=== PATIENT | female | born 1965 | race African-American/Black ===

== ENCOUNTER 2016-11-23 09:14 | Day surgery (SDC) | payer OTHER ==
[~2016-11-23] VITALS: Ht 170.2 cm; Wt 140.6 kg
[~2016-11-23 09:14] MED LIST: ASPI325T11 PO; ATOR40TA PO; CARV3.122; CEFAZOLIN 2GM PREMIX 50 ML IV ONE; CLOP75TA PO; CYCL10TA2 PO; DAPA5TAB PO; EZET10TA3 PO; FENTANYL PF 100 MCG/2 ML VIAL. IV PRN; FURO-68; HYDR-2666; HYDR-2672 PO; HYDROMORPHONE 2 MG/ML VIAL. IV PRN; INSU100C4; INSU100C4 SQ; INSU100V13 SQ; ISOS30TA4 PO; ISOSULFAN BLUE 50 MG/5 ML VIAL. SQ ONE; IV RINGERS,LACTATED 1000ML 1,000 ML IV SCH; LIDOCAINE 1% 1 ML SYRINGE. ID PRN; LISI-334; LORA4VIA4; LOSA50TA6 PO; METF-93; METF10002 PO; METO25TA4 PO; MORPHINE SULFATE 2 MG/ML DISP.SYRIN. IV PRN; NITR0.4T SL; OMEP40CA5; ONDANSETRON PF 4 MG/2 ML VIAL. IV PRN; PANT40TA3 PO; POTA20TA4 PO; PROCHLORPERAZINE 10 MG/2 ML VIAL. IV PRN; SITA100T; [UNRECOGNIZED DRUG - CODE]
[2016-11-23] MEDS ORDERED: FENTANYL PF 100 MCG/2 ML VIAL. ONE (10:33)
[2016-11-23] MEDS ORDERED: PROPOFOL 20 ML IV ONE (10:34)
[2016-11-23] MEDS ORDERED: LIDOCAINE 2% 100 MG/5 ML DISP.SYRIN. ONE (10:34)
[2016-11-23] MEDS ORDERED: SEVOFLURANE 61 TO 120 MINUTES. IH ONE (10:34)
[2016-11-23 10:37] LABS: NEG OBC UR NEG; POS OBC UR POS
[2016-11-23] MEDS ORDERED: ONDANSETRON PF 4 MG/2 ML VIAL. ONE (10:40)
[2016-11-23] MEDS ORDERED: DEXAMETHASONE SOD PHOS 20 MG/5 ML VIAL. ONE (10:40)
[2016-11-23] MEDS ORDERED: BUPIVACAINE-EPI 0.5%-1:200000 50 ML VIAL. ONE (11:09)
[2016-11-23] MEDS ORDERED: OXYCODONE/APAP 5/325 TABLET. PO ONE (11:30)
[2016-11-23] MEDS: FENTANYL PF 100 MCG/2 ML VIAL. IV PRN ×4 (11:40→12:30)
--- NOTE | 2016-11-23 12:03 | PDOC4 ---
Operative Note Operative Note Operative Note: Preoperative Diagnosis: Right axillary lymphadenopathy Postoperative Diagnosis: Same Procedure: Excision of right axillary lymph node Surgeon: [employer] Associate: Avani CRISTOBAL Anesthesia: Gen. Specimen: Right axillary lymph node to pathology Drains: None Complications: None Indication: The patient is a 51-year-old female who is recently diagnosed with a enlarged right axillary lymph node. She was referred for surgical biopsy. The details and risks of the procedure were discussed with the patient. The risks include bleeding, infection, pain, potential need for additional surgery or procedure. She understands and would like to proceed. Description: The patient was taken to the operating room and placed supine on the operating table. Gen. anesthesia was performed. The right axilla was prepped with ChloraPrep and draped in a standard surgical manner. An incision was made overlying the enlarged lymph node with a scalpel. Cautery dissection was carried down in subcutaneous tissues. The lymph node was easily identified and mobilized from surrounding tissues. The vascular pedicle supplying the lymph node was ligated with a 2-0 Vicryl tie. The lymph node was then completely mobilized and excised and sent to pathology for evaluation. A few small bleeding spots were controlled with cautery. Hemostasis was good. The subcutaneous tissue was approximated with interrupted 3-0 Vicryl. The skin was closed with 4-0 Monocryl suture. Incision was infiltrated with half percent Marcaine with epinephrine. A sterile dressing was then applied. The patient tolerated the procedure well and was sent to the recovery room in stable condition. At the end of the case all counts were correct. NATALYA VILLARREAL MD Nov 23, 2016 12:03
--- NOTE | 2016-11-23 12:04 | DISCH ---
DISCHARGE INSTRUCTIONS Condition on Discharge Condition on Discharge: Stable Activity After Discharge Activity Instructions for Disc: Resume previous activity Driving Instructions after Dis: Other, see below (no driving while taking po pain meds) Diet after Discharge Diet after Discharge: Regular Wound Incision Care Wound/Incision Care: Other, see below (keep dressing clean and dry X 72 hours, may then remove and shower) Follow-Up Follow up with: Dr Villarreal in 2 weeks, call for appt [phone] NATALYA VILLARREAL MD Nov 23, 2016 12:04
[2016-11-23] MEDS ORDERED: OXYC-323 PO (12:18)
[2016-11-23 12:40] VITALS: BP 114/61
== END 2016-11-23 13:23 | disposition home or self-care (01) ==
LOC: SURG 09:14
PROVIDERS: ATTEND Surgery
DX: R59.0 Localized enlarged lymph nodes (principal); E78.00 Pure hypercholesterolemia, unspecified; I10 Essential (primary) hypertension; E66.9 Obesity, unspecified; M19.90 Unspecified osteoarthritis, unspecified site; I25.10 Atherosclerotic heart disease of native coronary artery without angina pectoris; E11.9 Type 2 diabetes mellitus without complications; F17.200 Nicotine dependence, unspecified, uncomplicated
CPT/HCPCS: 38500; 81025; 82947; 88184; 88185; C1769; J0690; J0780; J1100; J2405; J2704; J3010; Q9968

== ENCOUNTER → 2016-12-29 | Outpatient (CLI) | payer OTHER ==
[~2016-12-29] MED LIST changes: -CEFAZOLIN 2GM PREMIX 50 ML IV ONE; -FENTANYL PF 100 MCG/2 ML VIAL. IV PRN; -HYDROMORPHONE 2 MG/ML VIAL. IV PRN; -ISOSULFAN BLUE 50 MG/5 ML VIAL. SQ ONE; -IV RINGERS,LACTATED 1000ML 1,000 ML IV SCH; -LIDOCAINE 1% 1 ML SYRINGE. ID PRN; -MORPHINE SULFATE 2 MG/ML DISP.SYRIN. IV PRN; -ONDANSETRON PF 4 MG/2 ML VIAL. IV PRN; +OXYC-323 PO; -PROCHLORPERAZINE 10 MG/2 ML VIAL. IV PRN
--- NOTE | 2016-12-29 12:59 | RAD ---
EXAM: PET/CT SKULL BASE TO MID THIGH. HISTORY: Hodgkin's lymphoma COMPARISON: 02/09/2009. TECHNIQUE: CT was performed from the skull base through the mid thighs for the purposes of attenuation correction. 12.54 mCi F-18 fluorodeoxyglucose (FDG) was administered intravenously. After an uptake period, positron emission tomography was performed from the skull base through the mid thighs. The PET and CT data were fused and interpreted in combination a dedicated workstation. Blood glucose level was 92 mg/dL at the time of FDG administration. FINDINGS: The degree of skeletal muscular uptake is somewhat excessive. This is most notable about the pelvic girdle. This can lower sensitivity. There are small lymph nodes in the right axilla. Maximum SUV is 3.0. No clearly hypermetabolic lymph nodes are seen elsewhere. There are overlying postsurgical changes. There is relatively intense uptake along the ascending colon with maximum SUV 11.7. This is most likely from peristalsis as no underlying lesion is seen on CT. Additional CT findings include coronary atherosclerotic calcifications. Calcified mediastinal lymph nodes are consistent with old granulomatous disease. The liver is at least mildly enlarged. The spleen is not enlarged. A 2.9 x 2.1 cm left adrenal nodule measures 0 Hounsfield units in attenuation and is consistent with a benign adenoma. It is not hypermetabolic. A cystic lesion in the right adnexa measures 9.0 x 6.3 cm. Adjacent hypermetabolism is likely within the colon. There is no clear solid component. IMPRESSION: 1. There is only mild uptake within small right axillary lymph node with maximum SUV 3.0. No pathologically enlarged or clearly hypermetabolic lymph nodes are seen elsewhere throughout the body. 2. A 9 cm cystic mass in the right adnexa demonstrates no clear hypermetabolism. This may be an ovarian cyst or a cystic neoplasm of low malignant potential. Pelvic ultrasound is recommended for further evaluation. 3. 2.9 cm benign left adrenal adenoma. 4. Relatively focal right colonic hypermetabolism is most likely from peristalsis. Correlate with current: Howard findings to exclude an underlying lesion. 5. Additional CT findings as above.
== END | disposition home or self-care (01) ==
LOC: PETSC 09:34
PROVIDERS: ATTEND Internal Medicine Hematology & Oncology
DX: C81.94 Hodgkin lymphoma, unspecified, lymph nodes of axilla and upper limb (principal)
CPT/HCPCS: 78815; A9552

== ENCOUNTER → 2017-01-06 | Outpatient (CLI) | payer OTHER ==
[~2017-01-06] VITALS: Ht 170.2 cm; Wt 140.6 kg
[2017-01-06] VITALS (11 sets, daily range): BP systolic 112–137; BP diastolic 62–86
[~2017-01-06] MED LIST changes: -CARV3.122; +CARV3.122 PO; +DEXTROSE 50% 25 GM / 50ML DISP.SYRIN. IV ONE; +FENTANYL PF 250 MCG/5 ML VIAL. IV ONE; +FENTANYL PF 250 MCG/5 ML VIAL. ONE; -FURO-68; +FURO-68 PO; +LIDOCAINE 1% / SOD BICARB 8.4% 20 ML VIAL. IJ ONE; +MIDAZOLAM HCL/PF 5 MG/5 ML VIAL IV ONE; +MIDAZOLAM HCL/PF 5 MG/5 ML VIAL ONE; +SITA50TA PO; +TRAZ50TA15 PO
[2017-01-06 07:30] LABS: BASO % 0 % (0-3); EOS % 2 % (0-3); HEMATOCRIT 40.7 % (36.0-47.0); HEMOGLOBIN 13.3 g/dL (12.0-15.5); LYMPH # 4.1 x10^3/uL (1.0-4.8); LYMPH % 42 % (24-48); MEAN CORPUSCULAR HEMOGLOBIN 30 pg (25-35); MEAN CORPUSCULAR HGB CONC 33 g/dL (31-37); MEAN CORPUSCULAR VOLUME 91 fL (79-100); MONO % 8 % (0-9); NEUT % 47 % (31-73); PLATELET COUNT 426 x10^3/uL (140-400); RED BLOOD COUNT 4.45 x10^6/uL (3.50-5.40); RED CELL DISTRIBUTION WIDTH 15.6 % (11.5-14.5); WHITE BLOOD COUNT 9.8 x10^3/uL (4.0-11.0)
[2017-01-06 07:49] LABS: PROTHROMBIN TIME PATIENT 12.9 SEC (11.7-14.0)
--- NOTE | 2017-01-06 11:01 | PDOC ---
MODERATE SEDATION ASSESSMENT RISKS/ALTERNATIVES Risks/Alternatives Risks and alternatives of this type of sedation and procedure discussed with: RISK/ALTERNATIVES: Patient H & P ON CHART H & P H & P on chart and reviewed for co-morbid conditions and appropriate labs. H&P ON CHART: Yes STATUS PREG STATUS ASSESSED: Yes MEDS/ALLERGIES REVIEWED Meds/Allergies Reviewed Medications and Allergies including time and route of recently administered narcotics and sedatives. MEDS/ALLERGIES REVIEWED: Yes ASA RATING ASA RATING: II AIRWAY ASSESSMENT Airway Assessment Airway patency, oral function limitations, presence of caps, crowns, dentures, partials, and ability to extend neck assessed. AIRWAY ASSESSMENT: Yes MALLAMPATI SCORE MALLAMPATI SCORE: II PRE-SEDATION ASSESSMENT PRE-SEDATION ASSESSMENT: Yes KIM RAZA MD Jan 06, 2017 11:01
--- NOTE | 2017-01-06 11:02 | PDOC1 ---
History and Physical Date of Procedure Date of Admission History of Present Illness Reason for Visit NHL Past Medical History Past Medical History see nursing pre-op assessment Current Medications Current Medications Current Medications Dextrose 25 gm STK-MED ONCE IV ; Start 01/06/17 at 07:30; Stop 01/06/17 at 07:31; Status DC Lidocaine/Sodium Bicarbonate (Buffered Lidocaine 1%) 20 ml STK-MED ONCE IJ ; Start 01/06/17 at 08:14; Stop 01/06/17 at 08:15; Status DC Dextrose 25 gm 1X ONCE IV ; Start 01/06/17 at 08:45; Stop 01/06/17 at 08:46; Status DC Midazolam HCl (Versed) 5 mg STK-MED ONCE .ROUTE ; Start 01/06/17 at 08:48; Stop 01/06/17 at 08:49; Status DC Fentanyl Citrate (Fentanyl 5ml Vial) 250 mcg STK-MED ONCE .ROUTE ; Start at 08:48; Stop 01/06/17 at 08:49; Status DC Lidocaine/Sodium Bicarbonate (Buffered Lidocaine 1%) 20 ml 1X ONCE IJ Last administered on 01/06/17 08:54; Start 01/06/17 at 09:15; Stop 01/06/17 at 09:16; Status DC Midazolam HCl (Versed) 2 mg 1X ONCE IV Last administered on 01/06/17 09:06; Start 01/06/17 at 09:15; Stop 01/06/17 at 09:16; Status DC Fentanyl Citrate (Fentanyl 5ml Vial) 150 mcg 1X ONCE IV Last administered on 09:06; Start 01/06/17 at 09:15; Stop 01/06/17 at 09:16; Status DC Active Scripts Active Nitrostat (Nitroglycerin) 0.4 Mg Tab.subl 0.4 Mg SL PRN Q5MIN PRN Metoprolol Tartrate 25 Mg Tablet 12.5 Mg PO BID Aspirin Ec (Aspirin) 325 Mg Tablet. 325 Mg PO DAILYWBKFT Reported Januvia (Sitagliptin Phosphate) 50 Mg Tablet 50 Mg PO DAILY Trazodone Hcl 50 Mg Tablet 50 Mg PO HS Percocet 5-325 Mg Tablet (Oxycodone/Acetaminophen) 1 Each Tablet 1-2 Tab PO Q4- 6HRS Carvedilol 3.125 Mg Tablet PO DAILY Klor-Con M20 (Potassium Chloride) 20 Meq Tab.er.prt 1 Tab PO DAILY Cyclobenzaprine Hcl 10 Mg Tablet 1 Tab PO QHS Lipitor (Atorvastatin Calcium) 40 Mg Tablet 40 Mg PO DAILY Isosorbide Mononitrate Er (Isosorbide Mononitrate) 30 Mg Tab.er.24h 30 Mg PO DAILY Farxiga (Dapagliflozin Propanediol) 5 Mg Tablet 5 Mg PO DAILY Losartan Potassium 50 Mg Tablet 50 Mg PO DAILY Protonix (Pantoprazole Sodium) 40 Mg Tablet.dr 1 Tab PO DAILY Clopidogrel (Clopidogrel Bisulfate) 75 Mg Tablet 1 Tab PO DAILY Novolog (Insulin Aspart) 100 Unit/1 Ml Cartridge 65 Unit SQ TIDBFRMEAL Hydrocodone-Apap 10-325 (Hydrocodone Bit/Acetaminophen) 1 Each Tablet 1 Tab PO PRN Q4-6HRS PRN Metformin Hcl 1,000 Mg Tablet 1 Tab PO BID Zetia (Ezetimibe) 10 Mg Tablet 1 Tab PO DAILY Lasix (Furosemide) 40 Mg Tablet 40 PO BID Levemir (Insulin Detemir) 100 Unit/1 Ml Vial 75 Units SQ HS Allergies Allergies: Coded Allergies: iodine (Verified Allergy, Unknown, Rash, 11/23/16) lisinopril (Verified Allergy, Unknown, angioedema , 11/23/16) Physical Exam Vital Signs Vital Signs Date Time Temp Pulse Resp B/P Pulse Ox O2 Delivery O2 Flow Rate FiO2 01/06/17 10:34 67 19 95 Room Air 01/06/17 09:33 2.0 01/06/17 08:20 124/74 Other see nursing pre-op assessment Assessment Assessment NHL Problems: Plan Plan CT bone Marrow Biopsy KIM RAZA MD Jan 06, 2017 11:02
--- NOTE | 2017-01-06 11:04 | PDOC ---
BRIEF OPERATIVE NOTE Pre-Op Diagnosis NHL Post-Op Diagnosis same Procedure Performed CT Bone Marrow Biopsy Surgeon Carline Anesthesia Type: Conscious Sedation Specimens Obtained 2 x 2cc aspirates and 1 x 10g core Complications No immediate KIM RAZA MD Jan 06, 2017 11:04
--- NOTE | 2017-01-06 13:52 | RAD ---
Exam performed: Pelvic Ultrasound. Indication: Non Hodgkin's lymphoma. Date of Service: 01/06/17 . Comparison: None available Technique: Transabdominal and transvaginal Findings: The uterus is anteverted and oqyaalmy77.8 x 6.0 x 6.7 cm. There is a 2.6 x 2.6 x 2.8 cm posterior wall fibroid. The endometrial stripe 3.2. Incidental nabothian cyst Both ovaries are normal demonstrate symmetric vascularity. The right ovary measures 9.0 x 6.7 x 6.3 cm and contains a 8.6 x 6.7 x 6.0 cm cyst. The left ovary measures 3.0 x 1.9 x 2.1 cm. There is no solid or cystic mass lesion. Impression: 1. Small 2.6 x 2.6 x 2.8 cm posterior wall fibroid. 2. A 8.6 x 6.7 x 6.0 cm right ovarian cyst. Six-month follow-up exam may be obtained to ensure interval resolution.
--- NOTE | 2017-01-06 14:44 | RAD ---
Procedure: CT-guided bone marrow aspiration and biopsy Clinical Indication: 51-year-old with non-Hodgkin's lymphoma Sedation: Conscious sedation was administered for less than 15 minutes. The patient was monitored by a qualified independent observer throughout the time of sedation. Please refer to the medical record for exact doses of medications utilized to achieve moderate sedation. Antibiotics: None Fluoro Time: Not applicable Contrast: None Sterility: The procedure was performed in its entirety using appropriate elements of sterile technique. Consent: The procedure was explained in its entirety to the patient or the patients designated outbound call center representative by a member of the treatment team, including a discussion of the risks, benefits and commonly accepted alternatives to the procedure, as well as the expected consequences of no therapy whatsoever. Discussion of the risks included, but was not limited to, those that are most frequent and those that are rare but possibly severe or life-threatening, as well as the possibility of unforeseen complications. Technique and Findings: Following informed consent, the patient was prepped and draped in usual sterile fashion. Preliminary CT scan of the area of interest was performed. 1% Lidocaine was used to achieve local anesthesia. Under periodic CT surveillance, an 11-gauge needle was advanced through the cortex of the posterior superior iliac spine and 2 separate 2 mL marrow aspirates were obtained and preserved on site by the director of speech pathology. A single 11-gauge core biopsy specimen was then obtained and preserved in formalin. The needle was then removed and hemostasis was achieved with manual compression. Complications: No immediate Impression: 1. CT-guided bone marrow aspiration and biopsy as described PQRS Compliance Statement: One or more of the following individualized dose reduction techniques were utilized for this examination: 1. Automated exposure control 2. Adjustment of the mA and/or kV according to patient size 3. Use of iterative reconstruction technique
== END | disposition home or self-care (01) ==
LOC: INTRAD 06:37
PROVIDERS: ATTEND Internal Medicine Hematology & Oncology
DX: C85.96 Non-Hodgkin lymphoma, unspecified, intrapelvic lymph nodes (principal); N83.201 Unspecified ovarian cyst, right side; D25.9 Leiomyoma of uterus, unspecified; E78.00 Pure hypercholesterolemia, unspecified; I10 Essential (primary) hypertension; E66.9 Obesity, unspecified; M19.90 Unspecified osteoarthritis, unspecified site; E11.9 Type 2 diabetes mellitus without complications; K21.9 Gastro-esophageal reflux disease without esophagitis; Z87.39 Personal history of other diseases of the musculoskeletal system and connective tissue
CPT/HCPCS: 36415; 38221; 76830; 76856; 77012; 85027; 85610; 88184; 88185; 88237; C1892; G0364; J2250; J3010

== ENCOUNTER 2017-03-23 06:18 | Day surgery (SDC) | payer OTHER ==
[~2017-03-23 06:18] MED LIST changes: -DEXTROSE 50% 25 GM / 50ML DISP.SYRIN. IV ONE; -FENTANYL PF 250 MCG/5 ML VIAL. IV ONE; -FENTANYL PF 250 MCG/5 ML VIAL. ONE; -LIDOCAINE 1% / SOD BICARB 8.4% 20 ML VIAL. IJ ONE; +METF-620 PO; -METF10002 PO; -MIDAZOLAM HCL/PF 5 MG/5 ML VIAL IV ONE; -MIDAZOLAM HCL/PF 5 MG/5 ML VIAL ONE
[2017-03-23] MEDS ORDERED: ONDANSETRON PF 4 MG/2 ML VIAL. IV PRN (07:00)
[2017-03-23] MEDS ORDERED: fentaNYL PF VIAL 100 MCG/2 ML VIAL IV PRN (07:00)
[2017-03-23] MEDS ORDERED: PROCHLORPERAZINE 10 MG/2 ML VIAL. IV PRN (07:00)
[2017-03-23] MEDS ORDERED: LIDOCAINE 1% 1 ML SYRINGE. ID PRN (07:00)
[2017-03-23] MEDS ORDERED: IV RINGERS,LACTATED 1000ML 1,000 ML IV SCH (07:00)
[2017-03-23] MEDS ORDERED: SURGICEL HEMOSTAT 4X8 EACH. ONE (07:21)
[2017-03-23] MEDS ORDERED: BUPIVACAINE-EPI 0.25%-1:200000 MPF 30 ML VIAL. ONE (07:21)
[2017-03-23 08:11] LABS: BASO # 0.1 x10^3/uL (0.0-0.2); BASO % 1 % (0-3); EOS % 1 % (0-3); HEMOGLOBIN 12.8 g/dL (12.0-15.5); LYMPH # 1.7 x10^3/uL (1.0-4.8); LYMPH % 19 % (24-48); MEAN CORPUSCULAR HEMOGLOBIN 31 pg (25-35); MEAN CORPUSCULAR HGB CONC 34 g/dL (31-37); MEAN CORPUSCULAR VOLUME 92 fL (79-100); MONO % 8 % (0-9); NEUT % 71 % (31-73); PLATELET COUNT 394 x10^3/uL (140-400); RED BLOOD COUNT 4.12 x10^6/uL (3.50-5.40); RED CELL DISTRIBUTION WIDTH 15.5 % (11.5-14.5); WHITE BLOOD COUNT 9.1 x10^3/uL (4.0-11.0)
[2017-03-23] MEDS ORDERED: fentaNYL PF VIAL 100 MCG/2 ML VIAL ONE (08:39)
[2017-03-23] MEDS ORDERED: LIDOCAINE 2% PF Vial for OR 5 ML VIAL. ONE (08:39)
[2017-03-23] MEDS ORDERED: PROPOFOL 20 ML IV ONE ×2 (08:39→10:25)
[2017-03-23] MEDS ORDERED: ONDANSETRON PF 4 MG/2 ML VIAL. ONE (08:39)
[2017-03-23] MEDS ORDERED: DEXAMETHASONE SOD PHOS 20 MG/5 ML VIAL. ONE (08:39)
[2017-03-23] MEDS ORDERED: MIDAZOLAM HCL/PF 2 MG/2 ML VIAL. ONE (08:39)
[2017-03-23] MEDS ORDERED: GLYCOPYRROLATE 1 MG/5 ML VIAL. ONE (09:37)
[2017-03-23] MEDS ORDERED: NEOSTIGMINE METHYLSULFATE 5 MG/5 ML SYRINGE. ONE (09:37)
--- NOTE | 2017-03-23 10:43 | PDOC ---
BRIEF OPERATIVE NOTE Pre-Op Diagnosis ROV Cyst Post-Op Diagnosis Bilateral Ovarian Cysts Procedure Performed [facility] BSO Surgeon Dr. Kenny Anesthesia Type: General Blood Loss 50 ml Specimens Obtained keven. ovaries and fallopian tubes. Findings enlarged, fibroid uterus; keven. ovarian cysts; nml fallopian tubes keven. Complications none Additional Remarks pt. KARISHAM Redmond Jr, MD March 23, 2017 10:43
--- NOTE | 2017-03-23 10:44 | DISCH ---
DISCHARGE INSTRUCTIONS Condition on Discharge Condition on Discharge: Stable Activity After Discharge Activity Instructions for Disc: Activity as tolerated Lifting Instructions after Dis: No heavy lifting Driving Instructions after Dis: Do not drive today Diet after Discharge Diet after Discharge: Regular Contacting the DRZeinab after DC Call your doctor for: Concerns you may have Follow-Up Follow up with: Dr. Kenny in 1 week. KARISHMA KENNY Jr, MD March 23, 2017 10:44
[2017-03-23] MEDS ORDERED: SEVOFLURANE 61 TO 120 MINUTES. IH ONE (10:52)
[2017-03-23] MEDS: fentaNYL PF VIAL 100 MCG/2 ML VIAL IV PRN ×2 (11:04→11:11)
[2017-03-23] MEDS: MORPHINE SULFATE 2 MG/ML DISP.SYRIN. IV PRN ×2 (11:22→11:39)
[2017-03-23] MEDS ORDERED: OXYC-323 PO (11:28)
[2017-03-23] MEDS: HYDROmorphone 2 MG/ML VIAL IV PRN ×2 (11:49→12:07)
[2017-03-23 13:04] VITALS: BP 134/78
--- NOTE | 2017-03-23 13:10 | OP ---
DATE OF SURGERY: PREOPERATIVE DIAGNOSIS: Right ovarian cyst. POSTOPERATIVE DIAGNOSIS: Bilateral ovarian cysts. PROCEDURE: Laparoscopic bilateral salpingo-oophorectomy. SURGEON: Eddie Kenny MD ANESTHESIA: GETA. ESTIMATED BLOOD LOSS: 50 mL. COMPLICATIONS: None. FINDINGS: Enlarged fibroid uterus, bilateral ovarian cysts. Normal fallopian tubes bilaterally. SUMMARY: A 51-year-old female who was discovered to have a right ovarian cyst about 10-12 cm size; that appeared to be a fluid-filled cyst. The patient was counseled on laparoscopic BSO. Risks, benefits and expectations and voiced a clear understanding to proceed. DESCRIPTION OF PROCEDURE: The patient was taken to surgery suite and placed in dorsal lithotomy position. She was prepped with ____ for vaginal prep and ChloraPrep for abdominal prep. After adequate anesthesia, a bivalve speculum was placed vaginally. Anterior lip of the cervix was grasped with single tooth tenaculum. [place] uterine manipulator was then placed. The bivalve speculum was removed. A low-transverse skin incision made just below the umbilicus with the scalpel. The Veress needle was then placed through the infraumbilical incision site. The abdomen was allowed to insufflate up to 2 liters of CO2 gas. The Veress needle was then removed; 5 mm trocar was placed. The scope was positioned. The uterus appeared enlarged with fibroids. Both fallopian tubes appeared normal. Both ovaries were enlarged with cyst. The right ovarian cyst was about 12 cm in size; the left ovarian cyst was 6 cm in size. Then, two incisions were made in the left lower quadrant with a scalpel in which an 11 mm trocar and a 5 mm trocar was placed with aid of EndoShears. The right ovarian cystotomy was performed. The cyst was drained with suction irrigation. The right infundibulopelvic ligament was coagulated and dissected. The right utero-ovarian pedicle was coagulated and dissected. The overhead different adhesions to the pelvic sidewall which were removed with the use of EnSeal device as well. The specimen was removed through the Endobag. Same process took place for the left adnexa. Pedicles were hemostatic. Suction irrigation was utilized to verify good hemostasis. Small amount of normal saline was left in posterior cul-de-sac. The trocars were then removed under direct visualization. The abdomen was allowed to deflate as much as possible along with mechanical manipulation. The 11 mm port was closed at the fascial layer using 2-0 Vicryl suture in a [id number] manner. The three skin incisions were reapproximated using 4-0 Vicryl suture in a subcuticular manner. Then, 0.25% Marcaine with epinephrine was injected at each incision site. Uterine acorn manipulator and single tooth tenaculum were removed. The patient tolerated procedure well and was taken to recovery room in stable condition. Sponge and needle count correct x 3. EDDIE KENNY MD DR: CHEVY/josefina JOB#: [id number] / [id number]
== END 2017-03-23 13:32 | disposition home or self-care (01) ==
LOC: SURG 06:18
PROVIDERS: ATTEND Obstetrics & Gynecology
DX: N83.201 Unspecified ovarian cyst, right side (principal); N83.202 Unspecified ovarian cyst, left side; D25.9 Leiomyoma of uterus, unspecified; I25.10 Atherosclerotic heart disease of native coronary artery without angina pectoris; I10 Essential (primary) hypertension; E78.00 Pure hypercholesterolemia, unspecified; E66.9 Obesity, unspecified; K21.9 Gastro-esophageal reflux disease without esophagitis; I72.0 Aneurysm of carotid artery; M19.90 Unspecified osteoarthritis, unspecified site
CPT/HCPCS: 36415; 58661; 82947; 85027; 86850; 86900; 86901; A4215; C1782; J0780; J1100; J1170; J2270; J2405; J2704; J2710; J3010; J3490; J7030; J7120; J2250

== ENCOUNTER → 2017-05-25 | Outpatient (CLI) | payer OTHER ==
[~2017-05-25] MED LIST changes: +EZET10TA18 PO; -EZET10TA3 PO; -HYDR-2666; -HYDR-2672 PO; +HYDR-2758; +HYDR-2766 PO; +METF-153; -METF-93
--- NOTE | 2017-05-25 09:13 | RAD ---
Indication chronic pain. A standing AP weightbearing view incorporating both knees was obtained. Bony mineralization appears normal. There is mild degenerative change involving the left knee and minimal medial joint space compartment degenerative change involving the right. No acute bony finding is apparent. 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
--- NOTE | 2017-05-25 09:18 | RAD ---
Indication pain. AP and lateral views of the lumbar spine were obtained as well as a coned view targeted to the lumbosacral junction. Vertebral height alignment and disc spaces appear unremarkable. No acute finding is seen. Significant degenerative changes are not apparent on plain films. IMPRESSION: No acute or significant finding seen on plain films of the lumbar spine
== END | disposition home or self-care (01) ==
LOC: RAD 08:34
PROVIDERS: ATTEND Physical Medicine & Rehabilitation
DX: M54.16 Radiculopathy, lumbar region (principal); G89.29 Other chronic pain; M17.0 Bilateral primary osteoarthritis of knee
CPT/HCPCS: 72100; 73565

== ENCOUNTER → 2017-06-01 | Outpatient (CLI) | payer OTHER ==
--- NOTE | 2017-06-01 13:03 | RAD ---
EXAM: PET/CT SKULL BASE TO MID THIGH. HISTORY: Conditions lymphoma. Not currently receiving chemotherapy. Prior radiation therapy. COMPARISON: PET CT December 29, 2016.. TECHNIQUE: CT was performed from the skull base through the mid thighs for the purposes of attenuation correction. 16.3 mCi F-18 fluorodeoxyglucose (FDG) was administered intravenously. After an uptake period, positron emission tomography was performed from the skull base through the mid thighs. The PET and CT data were fused and interpreted in combination a dedicated workstation. Blood glucose level was 190 mg/dL at the time of FDG administration. FINDINGS: Head/neck: No suspicious uptake in this region. Chest: No suspicious uptake in this region. Abdomen/pelvis: There is physiologic uptake in both kidneys, ureters and the urinary bladder. No focal FDG avid mass or lymphadenopathy in this region. Musculoskeletal: No suspicious focal uptake. Uncorrected PET images: No additional suspicious finding. Low-dose CT: Coronary artery calcifications. Sequela of granulomatous disease with calcified granulomas in the left hilar region. Stable 2.4 cm left adrenal gland adenoma. Impression: No hypermetabolic lymphadenopathy to suggest active lymphomatous involvement.
== END | disposition home or self-care (01) ==
LOC: PETSC 08:26
PROVIDERS: ATTEND Internal Medicine Hematology & Oncology
DX: C81.04 Nodular lymphocyte predominant Hodgkin lymphoma, lymph nodes of axilla and upper limb (principal)
CPT/HCPCS: 78815; A9552

== ENCOUNTER → 2017-10-04 | Outpatient (CLI) | payer OTHER ==
[~2017-10-04] MED LIST changes: +CONTRAST GIVEN MC PRN; +IOHEXOL 240 MG/ML 100 ML VIAL. IV ONE; +IOHEXOL 240 MG/ML 50ML VIAL. PO ONE; +IOHEXOL 300 MG/ML 100ML VIAL. IV ONE; +IOHEXOL 300 MG/ML 50 ML VIAL. PO ONE; +diphenhydrAMINE HCL 25 MG CAPSULE PO ONE
--- NOTE | 2017-10-04 15:47 | RAD ---
CT chest, abdomen and pelvis with contrast Indication: Follow-up lymphoma. Technique: CT chest, abdomen and pelvis with 75 mL of Omnipaque 300 IV and 30 mL of Omnipaque 240 by mouth with multiplanar reformats. Comparison: PET CT from 06/01/2017 Findings: CT chest: Clear neck base. Heart is normal in size. No pericardial or pleural effusion. No axillary, mediastinal or hilar adenopathy. Calcified granuloma in the left upper lobe. No discrete pulmonary nodules or focal consolidations. Calcified left hilar lymph node. No suspicious bony lesions. CT abdomen and pelvis: Liver is normal in morphology without focal hepatic lesion. No radiopaque gallstones. No pericholecystic fluid or gallbladder wall thickening. Spleen is not enlarged and show no focal lesion. Pancreas is within normal limits. Bladder within normal limits. There is mild interval increase in the size of left adrenal nodule measuring 2.9 x 2.2 cm, previously 2.3 x 1[address] from 02/09/2009. The Hounsfield units compatible with adenoma or adrenal cyst. No nephrolithiasis or hydronephrosis. Stable 1 cm partially exophytic low attenuating lesion in the left kidney most likely simple cyst. No retroperitoneal or pelvic adenopathy. No bowel obstruction. Normal appendix. Uterus is present and is anteverted. Suggestion of 2 cm posterior fundal fibroid. No solid adnexal lesions. Bladder is decompressed limiting evaluation. No inguinal adenopathy. No suspicious bony lesion. Impression: No lymphadenopathy in the chest, abdomen or pelvis. PQRS Compliance Statement: One or more of the following individualized dose reduction techniques were utilized for this examination: 1. Automated exposure control 2. Adjustment of the mA and/or kV according to patient size 3. Use of iterative reconstruction technique
== END | disposition home or self-care (01) ==
LOC: CT 15:42
PROVIDERS: ATTEND Internal Medicine Hematology & Oncology
DX: C85.90 Non-Hodgkin lymphoma, unspecified, unspecified site (principal); E11.9 Type 2 diabetes mellitus without complications; Z87.891 Personal history of nicotine dependence; Z95.5 Presence of coronary angioplasty implant and graft
CPT/HCPCS: 71260; 74177; Q0163; Q9966; Q9967

== ENCOUNTER → 2018-03-27 | Outpatient (CLI) | payer OTHER ==
[2018-03-27 08:42] LABS: GFR 70.2
[2018-03-27] MEDS: IOHEXOL 240 MG/ML 50ML VIAL. PO (10:01)
[2018-03-27] MEDS: IOHEXOL 300 MG/ML 100ML VIAL. IV (10:01)
== END | disposition home or self-care (01) ==
LOC: CT 08:16
DX: C85.96 Non-Hodgkin lymphoma, unspecified, intrapelvic lymph nodes (principal); K76.0 Fatty (change of) liver, not elsewhere classified; E11.65 Type 2 diabetes mellitus with hyperglycemia; E78.00 Pure hypercholesterolemia, unspecified
CPT/HCPCS: 36415; 71260; 74177; 82565; Q9966; Q9967

== ENCOUNTER → 2018-03-30 | Outpatient (CLI) | payer OTHER | END | disposition home or self-care (01) | LOC: MAMMO 09:27 | DX: Z12.31 Encounter for screening mammogram for malignant neoplasm of breast (principal) | CPT/HCPCS: 77063; 77067 ==

== ENCOUNTER → 2018-08-31 | Outpatient (CLI) | payer OTHER ==
[~2018-08-31] MED LIST changes: +ASPI81TA50 PO; -CONTRAST GIVEN MC PRN; +DIPH25CA58 PO; +FLUT100D IH; +IBUP-1060 PO; -IOHEXOL 240 MG/ML 100 ML VIAL. IV ONE; -IOHEXOL 240 MG/ML 50ML VIAL. PO ONE; -IOHEXOL 300 MG/ML 100ML VIAL. IV ONE; -IOHEXOL 300 MG/ML 50 ML VIAL. PO ONE; -LOSA50TA6 PO; +LOSA50TA7 PO; -METF-620 PO; +METF10007 PO; +NICO1PAT25 TP; +TRAZ-85 PO; -TRAZ50TA15 PO; -diphenhydrAMINE HCL 25 MG CAPSULE PO ONE
--- NOTE | 2018-09-01 04:49 | PAIN ---
DATE OF SERVICE: 08/31/2018 INITIAL CONSULTATION FOR PAIN CLINIC CHIEF COMPLAINT: Low back and left lower extremity pain. HISTORY OF PRESENT ILLNESS: This is a 52-year-old female who presents with history of pain for many years, worse over the past 6 months or so. Pain in the low back and left lower extremity, mostly in the posterior gluteus, posterior thigh, lateral thigh, anterior thigh, medial thigh, medial lower leg and posterior lower leg to the ankle and foot. The patient reports it is sharp, stabbing, throbbing, shooting into the left leg, worse with standing, walking, not result of any specific injury or action that she is aware of, but getting worse over time. The patient reports the pain starts when she gets up on to her feet, better with sitting or lying down, but does awakening her from sleep about 4 times a night. The patient reports it does not affect her bowel or bladder control, but does affect her ability to walk. She has a cane she walks with some time, but does not have it with her today. The patient reports no significant pain in the right leg. It is all on the left side as described. The patient has not had any diagnostic studies at this time, did try some physical therapy; however, it was too painful for her to complete it. This was in 2017 by her report. She has had no other chiropractic treatment. No other treatments for the pain. She has been taking hydrocodone, ibuprofen, as well as Tylenol, all of which do decrease and help, but has not taken any for several months. The patient rates her disability, rating from 0-10, 10 being the worst, is a 9 with family and home responsibilities, occupation and sexual behavior; 8 with recreation and social activity; 8 with self-care; and 6 with life support activities. The patient reports no loss of motor function in the lower extremities, but significant pain in the left leg as described as well as across the low back bilaterally. PAST MEDICAL HISTORY: Significant for type 2 diabetes; lymphoma diagnosed in 2017, status post radiation treatment and excision right axilla lymph nodes; shortness of breath; history of bronchitis; hypertension; coronary artery disease with stents placed x 3; gastroesophageal reflux; obesity; arthritis; anxiety; depression. PREVIOUS SURGERY: Include bilateral oophorectomy, bone marrow biopsy, lymph node biopsy, jaw fracture in 1987, , D and C, and left shoulder arthroscopy in the past year. CURRENT MEDICATIONS: Include NovoLog, Levemir, NicoDerm, trazodone, Protonix, Plavix, metoprolol, metformin, losartan, Lasix, ibuprofen, fluticasone, isosorbide, cyclobenzaprine and Benadryl. ALLERGIES: THE PATIENT IS ALLERGIC TO IODINE. FAMILY HISTORY: Significant for diabetes, seizures, heart disease, COPD, and cancer. SOCIAL HISTORY: The patient does not drink alcohol. Smoke cigarettes 2-3 a day on average and has for many years. Does not use any illegal, illicit or recreational drugs. The patient is single, have 3 children living at home, lives locally in [place], [place]. Reports she is currently on disability. REVIEW OF SYSTEMS: The patient's review of systems is positive for those items mentioned in history of present illness. All systems reviewed and otherwise negative. It is complete, full and well documented on the patient's chart. PHYSICAL EXAMINATION: VITAL SIGNS: The patient's blood pressure 149/97, pulse is 70, respirations 20, temperature 98.0 degrees Fahrenheit, height is 5 feet 7 inches, weight is 319 pounds. GENERAL: The patient is awake, alert, oriented, appropriate, very pleasant demeanor. HEENT: Shows normocephalic, atraumatic. Extraocular movements are intact and symmetrical. Oral cavity: Mucous membranes moist and pink. Dentition is intact. NECK: Shows anterior throat supple without palpable lymphadenopathy noted. Swallow reflex symmetrical. CHEST: Shows normal on inspection. Breath sounds are clear to auscultation bilaterally. HEART: Shows S1, S2 clear. No murmurs auscultated. ABDOMEN: Soft, obese, nontender, nondistended. No palpable organomegaly is noted. No rebound or guarding demonstrated. BACK: Shows spine grossly in the midline. Normal appearing thoracic kyphosis and lumbar lordotic curvature. Lumbar paraspinous muscle shows symmetrical on inspection. On palpation shows some moderate tenderness throughout the middle and lower distribution of paraspinous muscles diffusely, but without significant radiation. No trigger points. No tenderness over the spinous processes, sacrum or sacroiliac regions. The patient has good rotational motion of lumbar spine without significant difficulty greater than 10 degrees right and left as well as extension greater than 10 degrees, forward flexion to 45 degrees without significant pain reported. EXTREMITIES: The patient's lower extremities show deep tendon reflexes at 1+ in the patellar and tendo calcaneus tendons. Motor exam is approximately 4 on a scale of 5 on the left with dorsiflexion and extension, 5/5 on the right. This is true with quadriceps and hamstring flexion as well. The patient does have positive straight leg raise on the left about 35 degrees, decreased with knee flexion. Right side is negative. Gaenslen's and Reza's maneuvers are negative bilaterally. The patient is able to stand, stand on her toes without difficulty or loss of balance, walks with a slight shuffling gait, does appear to favor the left lower extremity slightly, but not using any assistive devices on her visit today to ambulate. SKIN: Shows warm and dry, good turgor. No edema. No sores, rashes or bruising demonstrated. IMPRESSION: This is a 52-year-old female with: 1. Long history of low back pain, left lower extremity pain in a radicular fashion. 2. Type 2 diabetes. 3. Hypertension with coronary artery disease and stent placement, on anticoagulation therapy. 4. Arthritis. PLAN: Options were discussed with the patient including conservative medical management, physical therapy, interventional techniques and as she has tried physical therapy, was unable to complete this secondary to pain, she is interested in interventional techniques. We will first obtain MRI scan of the lumbar spine as she has not had any diagnostic studies performed and with the history of lymphoma. Also, we will check with patient's primary care physician who prescribes her Plavix and see if this may be amenable in the future to hold this for 7 days prior to her potential interventional procedure and we will wait for preauthorization with her insurance provider as well for potential lumbar epidural steroid injection. The patient will have the MRI scan scheduled. Once this is obtained, we will determine interventional techniques based on those results. LEIDY MONTANO MD DR: HARDEEP/josefina JOB#: [id number] / [id number] PUSHPA Kelley MD
== END | disposition home or self-care (01) ==
LOC: PNCL 08:19
PROVIDERS: ATTEND Anesthesiology
DX: M54.5 Low back pain (principal); M79.605 Pain in left leg; K21.9 Gastro-esophageal reflux disease without esophagitis; I10 Essential (primary) hypertension; E11.9 Type 2 diabetes mellitus without complications; I25.10 Atherosclerotic heart disease of native coronary artery without angina pectoris; E66.9 Obesity, unspecified; M19.90 Unspecified osteoarthritis, unspecified site; Z85.72 Personal history of non-Hodgkin lymphomas; Z92.3 Personal history of irradiation; Z90.722 Acquired absence of ovaries, bilateral; Z82.49 Family history of ischemic heart disease and other diseases of the circulatory system; Z82.5 Family history of asthma and other chronic lower respiratory diseases
CPT/HCPCS: 99214

== ENCOUNTER → 2018-09-21 | Outpatient (CLI) | payer OTHER ==
--- NOTE | 2018-09-21 23:36 | PAIN ---
DATE OF SERVICE: 09/21/2018 PROGRESS NOTE FOR PAIN CLINIC DIAGNOSES: 1. Lumbar radiculopathy with lumbar degenerative disk disease. 2. Bilateral knee joint pain with osteoarthritis in bilateral knees. HISTORY OF PRESENT ILLNESS: The patient is a 52-year-old female who returns for followup status post initial evaluation. We ordered an MRI scan of the lumbar spine, also clearance from her primary care physician to be off her Plavix. She has gotten this clearance; however, she is still on her Plavix as she did not get her MRI scan done as scheduled. The patient reports she thought she was coming here today to have it done, so the MRI has not been performed. The patient still has pain in low back, left lower extremity as it was previously radiating to posterior gluteus, posterior lateral thigh, lateral anterior thigh, medial thigh, medial lower leg and into the foot and the top of the foot, especially with numbness and tingling. The patient reports it is stabbing, aching, burning, sharp, on and off intensity, worse with walking, standing, changing positions, better with sitting or lying down. It does not awaken her from sleep at night. The patient reports it is a 10 on scale of 10 at its worst, 9 on average, 8 at its least and is an 8 today. The patient reports she has been on antibiotics for a sinus infection and is not feeling well in general. The patient reports no new motor or sensory deficits; however, no new bowel or bladder incontinence or other complaints. PHYSICAL EXAMINATION: VITAL SIGNS: The patient's blood pressure is 150/81, pulse 85, respirations 18, temperature 98.0 degrees Fahrenheit. Height is 5 feet 7 inches and weight is 317 pounds. GENERAL: The patient is awake, alert, oriented, appropriate, very pleasant demeanor. HEENT: Head is normocephalic, atraumatic. Extraocular movements intact and symmetrical. Oral cavity: Mucous membranes moist and pink. Dentition is intact. NECK: Shows anterior throat supple without palpable lymphadenopathy noted. Swallow reflex symmetrical. CHEST: Shows normal on inspection. Breath sounds clear to auscultation bilaterally. ABDOMEN: Soft, nontender, nondistended. BACK: Shows spine grossly in the midline. Lumbar paraspinous muscle shows symmetrical on inspection, on palpation shows some moderate tenderness diffusely bilaterally. Good rotational motion, however, both laterally as well as extension and flexion. EXTREMITIES: Lower extremities show deep tendon reflexes at 1+ in the patellar and tendo calcaneus tendons. Motor exam is strong with 5/5 dorsiflexion, extension on the right and 4/5 on the left. Peripheral pulses are 1+ posterior tibia. No peripheral edema is noted. Options were discussed with the patient. The patient's old chart was reviewed as her current medication regimen updated and current review of systems updated today as well. We will reorder MRI scan as she has not had this performed. The patient will continue to take her Plavix until we have the results of the MRI returned. The patient will follow up after MRI scan and we will discuss the results and potentially hold Plavix for potential interventional treatment at that time. LEIDY MONTANO MD DR: HARDEEP/josefina JOB#: [id number] / [id number]
== END | disposition home or self-care (01) ==
LOC: PNCL 08:08
PROVIDERS: ATTEND Anesthesiology
DX: M51.16 Intervertebral disc disorders with radiculopathy, lumbar region (principal); M17.0 Bilateral primary osteoarthritis of knee
CPT/HCPCS: 99212

== ENCOUNTER → 2018-09-25 | Outpatient (CLI) | payer OTHER ==
--- NOTE | 2018-09-25 12:29 | RAD ---
MRI Lumbar Spine without contrast History: Low back pain with bilateral radiculopathy, symptoms for 4 months Technique: Multiplanar, multi sequential noncontrast MR imaging was performed of the lumbar spine. Comparison: None Findings: There is mild motion. Lumbar vertebral body stature and AP alignment are maintained. There is mild disc desiccation L3-4. Conus terminates at T12. There is no significant marrow edema. There is hemangioma of the right L3 vertebral body. L2-L3: Neural foramina and spinal canal are adequate. L3-L4: There is negligible disc osteophyte complex. Neural foramina and spinal canal are adequate. L4-L5: Neural foramina and spinal canal are overall adequate. L5-S1: Spinal canal is adequate. Neural foramina are overall adequate. Impression: 1. There is no significant lumbar spinal stenosis or neural foramina compromise. Electronically signed by: Milan Connell MD (09/25/2018 12:25 PM) [facility]
== END | disposition home or self-care (01) ==
LOC: MRI 11:18
PROVIDERS: ATTEND Anesthesiology
DX: D18.09 Hemangioma of other sites (principal); M51.16 Intervertebral disc disorders with radiculopathy, lumbar region; Z88.8 Allergy status to other drugs, medicaments and biological substances
CPT/HCPCS: 72148

== ENCOUNTER → 2018-11-01 | Outpatient (CLI) | payer OTHER ==
[~2018-11-01] MED LIST changes: +CARV3.1210 PO; -CARV3.122 PO; -HYDR-2758; +HYDR-2761; -HYDR-2766 PO; +HYDR-2769 PO; +IOHEXOL 240 MG/ML 50ML VIAL. PO ONE; +IOHEXOL 300 MG/ML 100ML VIAL. IV ONE; +LOSA-73 PO; -LOSA50TA7 PO; -OXYC-323 PO; +OXYC1TAB15 PO
--- NOTE | 2018-11-01 10:21 | RAD ---
CT CHEST ABD PELVIS W/CONTRAST Indication: F/U HODGKINS LYMPHOMA INJ 75ML OMNI 300 PREV SENT Exposure: One or more of the following individualized dose reduction techniques were utilized for this examination: 1. Automated exposure control 2. Adjustment of the mA and/or kV according to patient size 3. Use of iterative reconstruction technique. Comparison: March 27, 2018 Contrast: Intravenous contrast was given. Oral contrast was given. CHEST: Thoracic aorta: No evidence of aneurysm. Great vessel origins: Patent Pulmonary arteries: Main central arteries appear patent. Thyroid gland: Visualized aspect is unremarkable. Lymph nodes: No significant enlargement Heart: Mild coronary artery calcifications. Esophagus: Unremarkable Pleural spaces: No significant effusion Lungs: No dominant airspace consolidation or large mass. Trachea and central airways: Patent Spine: Vertebral body height and alignment are intact. Bones: No destructive process. External Soft Tissue: No acute findings. Impression: No significant abnormality. ABDOMEN PELVIS: Liver: Appears similar in morphology in size, no focal lesion. Spleen: Unremarkable Pancreas: Unremarkable Adrenals: Left adrenal nodule measures 2.5 cm unchanged as compared with previous similar slice angle. Kidneys: Small subcentimeter lesion left kidney, too small to characterize but unchanged. Urinary tracts: No hydronephrosis. Gallbladder: No calcified stone Lymph nodes: No significant enlargement Vessels: Aorta is nonaneurysmal. GI tract: Mild retained stool in the colon. No evidence of bowel obstruction. Appendix is normal. Reproductive organs:No evidence of mass. Urinary bladder: Unremarkable. Peritoneum: No evidence of pneumoperitoneum. No free fluid. Abdominal wall:Unremarkable Spine: Vertebral body height and alignment are intact. Bones: No destructive process. External Soft Tissue: No acute findings. Impression: 1. Stable left adrenal mass. 2. Subcentimeter left renal lesion, stable. 3. No new disease is identified. Electronically signed by: Pro Guerrero MD (11/01/2018 10:17 AM) [facility]
== END | disposition home or self-care (01) ==
LOC: CT 08:34
PROVIDERS: ATTEND Radiology Radiation Oncology
DX: C81.00 Nodular lymphocyte predominant Hodgkin lymphoma, unspecified site (principal); I25.10 Atherosclerotic heart disease of native coronary artery without angina pectoris; N28.9 Disorder of kidney and ureter, unspecified; E27.8 Other specified disorders of adrenal gland; F17.210 Nicotine dependence, cigarettes, uncomplicated
CPT/HCPCS: 71260; 74177; Q9966; Q9967

== ENCOUNTER → 2018-11-02 | Outpatient (CLI) | payer OTHER ==
[2018-11-01 09:19] LABS: CREATININE 0.9 mg/dL (0.6-1.0)
[~2018-11-02] MED LIST changes: -IOHEXOL 240 MG/ML 50ML VIAL. PO ONE; -IOHEXOL 300 MG/ML 100ML VIAL. IV ONE
--- NOTE | 2018-11-02 23:28 | PAIN ---
DATE OF SERVICE: 11/02/2018 PROGRESS NOTE FOR PAIN CLINIC DIAGNOSES: 1. Lumbar radiculopathy with lumbar degenerative disk disease. 2. Bilateral knee joint pain with primary osteoarthritis. HISTORY OF PRESENT ILLNESS: The patient is a 53-year-old female who returns for followup status post initial evaluation and MRI scan ordered, which were discussed with her today and gave her a copy the report as well, which showed no significant lumbar stenosis or neural foraminal compromise and has a negligible disk osteophyte complex at L3-L4, otherwise essentially unremarkable. The patient reports still significant pain in the low back and is primarily in the left greater than right knee, worse with standing, walking, changing positions, getting up from sitting position, climbing on stairs, putting all of her weight on her left side with a history of osteoarthritis in the knees bilaterally. The patient reports it is about the same 10 on a scale of 10 at its worst, 9 on average, 8 at its least and is a 9 today. The patient reports it is burning, stabbing, aching in the back and leg and grinding feeling when she is walking in the left knee. The patient reports no new motor or sensory deficits and no new bowel or bladder incontinence or other complaints. The patient reports she has tried all the previous therapies, which have not helped including pool therapy and declines a reinstituting this. PHYSICAL EXAMINATION: VITAL SIGNS: The patient's blood pressure 140/80, pulse 73, respirations 18 and temperature 97.9 degrees Fahrenheit. Height is 5 feet 7 inches and weighs 314 pounds. GENERAL: The patient is awake, alert, oriented, appropriate and very pleasant demeanor. HEENT: Head is normocephalic and atraumatic. Extraocular movements are intact and symmetrical. Oral cavity shows mucous membranes moist and pink. Dentition is intact. NECK: Shows anterior throat supple without palpable lymphadenopathy noted. Swallow reflex is symmetrical. CHEST: Shows normal on inspection. Breath sounds clear to auscultation bilaterally. HEART: Shows S1 and S2 clear. No murmurs auscultated. ABDOMEN: Soft, nontender and nondistended. No palpable organomegaly is noted. No rebound or guarding demonstrated. Obese. BACK: Shows spine grossly in the midline. Normal-appearing thoracic kyphosis, some minor flattening of the lumbar lordotic curvature. Lumbar paraspinous muscle shows symmetrical on inspection and palpation shows some moderate tenderness throughout the middle and lower distribution of the paraspinous muscles but without radiation. The patient has good rotational motion of the lumbar spine, both laterally as well as extension and flexion without difficulty. EXTREMITIES: Lower extremities show deep tendon reflexes at 1+ in the patellar and tendo-calcaneus tendons. Motor exam is approximately 4 on a scale of 5 on the left and 5/5 on the right with ankles and quadriceps and hamstrings. Peripheral pulses are 1+ posterior tibial. No peripheral edema is noted edema is noted. The patient's knee shows good range of motion without ratcheting or crepitus bilaterally. Options were discussed with the patient. The patient's old chart was reviewed as well as her current medication regimen updated. Current review of systems updated today as well. We will proceed with rescheduling the patient as she has an aunt who is very ill and she would like to get to see her later today. We did discuss potential left intraarticular knee joint injection in the future. The patient will reschedule for this and we will make those arrangements. Also, again encouraged the patient to retry physical therapy, especially water therapy and the patient declines this. She reports therapy did not help her and would not like to pursue this. We will have her return in approximately 2 weeks and plan on a left intraarticular knee joint injection at that time. LEIDY MONTANO MD DR: HARDEEP/josefina JOB#: [id number] / [id number]
== END | disposition home or self-care (01) ==
LOC: PNCL 08:05
PROVIDERS: ATTEND Anesthesiology
DX: M51.16 Intervertebral disc disorders with radiculopathy, lumbar region (principal); M17.0 Bilateral primary osteoarthritis of knee
CPT/HCPCS: 36415; 82565; G0463

== ENCOUNTER → 2019-06-06 | Outpatient (CLI) | payer OTHER ==
[~2019-06-06] MED LIST changes: -PANT40TA3 PO; +PANT40TA77 PO; +TRAZ-118 PO; -TRAZ-85 PO
--- NOTE | 2019-06-07 10:34 | RAD ---
DATE: June 06, 2019 EXAM: MAMMO JUAN MIGUEL SCREENING BILATERAL HISTORY: Screening study. COMPARISON: 2015 and 2017 This study was interpreted with the benefit of Computerized Aided Detection (CAD). 2-D digital mammographic views of both breasts were performed in the CC and MLO projections. 3-D digital tomosynthesis images of both breasts were performed in the CC and MLO projections and reviewed on a computer workstation. FINDINGS: Breast Density: SCATTERED The breast parenchyma shows scattered fibroglandular densities. Breast parenchyma level B.. There are no dominant suspicious masses, suspicious microcalcifications or evidence of architectural distortion. IMPRESSION: No mammographic indicators for malignancy. BI-RADS CATEGORY: 1 NEGATIVE RECOMMENDED FOLLOW-UP: 12M 12 MONTH FOLLOW-UP PQRS compliance statement: Patient information was entered into a reminder system with a target due date June 07, 2020 for the next mammogram. Mammography is a sensitive method for finding small breast cancers, but it does not detect them all and is not a substitute for careful clinical examination. A negative mammogram does not negate a clinically suspicious finding and should not result in delay in biopsying a clinically suspicious abnormality. "Our facility is accredited by the [employer] Mammography Program." The patient's breast density may affect the ability of mammography to detect breast cancer. There are 4 categories of breast density, A, B, C and D. Breast density A means that most of the breast tissue is replaced with adipose tissue and therefore is not dense. Breast density B means that the breast tissue is mildly dense and scattered. Breast density C means that the breast tissue is heterogeneously dense. Breast density D means that the breast tissue is very dense. Breast densities especially C and D may decrease the sensitivity of mammography to detect breast cancer. Therefore, the patient may benefit from 3-D breast mammography (3D breast tomography) as a part of their screening mammogram. Insurance may or may not pay for this additional imaging. The patient's breast density based on today's mammogram is category B.
== END | disposition home or self-care (01) ==
LOC: MAMMO 08:27
PROVIDERS: ATTEND Internal Medicine
DX: Z12.31 Encounter for screening mammogram for malignant neoplasm of breast (principal)
CPT/HCPCS: 77063; 77067

== ENCOUNTER 2019-12-13 18:38 | Emergency (ER) | payer OTHER ==
[~2019-12-13] VITALS: Ht 167.6 cm; Wt 127.2 kg
[~2019-12-13 18:38] MED LIST changes: -EZET10TA18 PO; +EZET10TA20 PO; -NITR0.4T SL; +NITR0.4T24 SL; +OMEP40CA45; -OMEP40CA5
[2019-12-13 20:07] VITALS: BP 139/71
[2019-12-13 20:48] LABS: INFLUENZA A PATIENT NEGATIVE (NEGATIVE); INFLUENZA B PATIENT NEGATIVE (NEGATIVE)
[2019-12-13 21:05] LABS: BILIRUBIN,URINE NEGATIVE (NEG); CLARITY,URINE CLEAR; COLOR,URINE YELLOW; NITRITE,URINE NEGATIVE (NEG); PROTEIN,URINE NEGATIVE (NEG-TRACE)
[2019-12-13 21:10] LABS: BACTERIA,URINE MANY /HPF (0-FEW); RBC,URINE 0 /HPF (0-2); SQUAMOUS EPITHELIAL CELL,UR MANY /LPF; WBC,URINE TNTC /HPF (0-4)
[2019-12-13] MEDS ORDERED: CIPR500T94 PO ×2 (21:40→21:53)
[2019-12-13] MEDS ORDERED: ONDA4TAB12 PO ×2 (21:40→21:53)
[2019-12-13] MEDS ORDERED: CYCL10TA2 PO ×2 (21:40→21:53)
[2019-12-13] MEDS ORDERED: DICL50TA2 PO ×2 (21:40→21:53)
--- NOTE | 2019-12-13 21:40 | PHYS DOC ---
Past Medical History Past Medical History: Arthritis, Diabetes-Type II Additional Past Medical Histor: "artery disease" (CLARITA IRVIN APRN) Past Surgical History: , Other Additional Past Surgical Histo: jaw broke (CLARITA IRVIN APRN) Smoking Status: Current Every Day Smoker Alcohol Use: Occasionally Drug Use: None (CLARITA IRVIN APRN) Attending Signature I have participated in the care of this patient and I have reviewed and agree with all pertinent clinical information above including history, exam, and recommendations. (JUAN ANTONIO LOMELI MD) Adult General Chief Complaint Chief Complaint: GENERALIZED BODY ACHES HPI HPI Patient is a 54 year old female with a history of diabetes type 2, who presents to the ED today complaining of generalized body aches, nausea, vomiting, and bilateral flank pain rated as mild and intermittent, symptoms began 2 days and have been going on intermittently since then. Patient denies any fever. Denies any exacerbating or relieving factors. (CLARITA IRVIN APRN) Review of Systems Review of Systems Constitutional: Reports generalized body aches. Denies fever or chills [] Eyes: Denies change in visual acuity, redness, or eye pain [] HENT: Denies nasal congestion or sore throat [] Respiratory: Denies cough or shortness of breath [] Cardiovascular: No additional information not addressed in HPI [] GI: Denies abdominal pain, nausea, vomiting, bloody stools or diarrhea [] : Reports flank pain. Denies dysuria or hematuria [] Musculoskeletal: Denies back pain or joint pain [] Integument: Denies rash or skin lesions [] Neurologic: Denies headache, focal weakness or sensory changes [] All other systems were reviewed and found to be within normal limits, except as documented in this note. (CLARITA IRVIN APRN) Allergies Allergies Allergies Coded Allergies Type Severity Reaction Last Updated Verified lisinopril Allergy Severe angioedema 03/23/17 Yes iodine Allergy Intermediate Rash 10/04/17 Yes (JUAN ANTONIO LOMELI MD) Physical Exam Physical Exam Constitutional: Well developed, well nourished, no acute distress, non-toxic appearance. [] HENT: Normocephalic, atraumatic, bilateral external ears normal, oropharynx moist, no oral exudates, nose normal. [] Eyes: PERRLA, EOMI, conjunctiva normal, no discharge. [] Neck: Normal range of motion, no tenderness, supple, no stridor. [] Cardiovascular:Heart rate regular rhythm, no murmur [] Lungs & Thorax: Bilateral breath sounds clear to auscultation [] Abdomen: Bowel sounds normal, soft, no tenderness, no masses, no pulsatile masses. [] Skin: Warm, dry, no erythema, no rash. [] Back: No tenderness, no CVA tenderness. [] Extremities: No tenderness, no cyanosis, no clubbing, ROM intact, no edema. [] Neurologic: Alert and oriented X 3, normal motor function, normal sensory function, no focal deficits noted. [] Psychologic: Affect normal, judgement normal, mood normal. [] (CLARITA IRVIN APRN) Current Patient Data Vital Signs Vital Signs Date Time Temp Pulse Resp B/P (MAP) Pulse Ox O2 Delivery O2 Flow Rate FiO2 12/13/19 20:07 97.9 80 20 139/71 (93) 99 Room Air 97.9 (JUAN ANTONIO LOMELI MD) Lab Values Laboratory Tests Test 12/13/19 20:00 12/13/19 20:11 12/13/19 20:21 Urine Collection Type Unknown Urine Color Yellow Urine Clarity Clear Urine pH 5.0 Urine Specific [place] 1.025 Urine Protein Negative mg/dL (NEG-TRACE) Urine Glucose (UA) Negative mg/dL (NEG) Urine Ketones (Stick) Negative mg/dL (NEG) Urine Blood Negative (NEG) Urine Nitrite Negative (NEG) Urine Bilirubin Negative (NEG) Urine Urobilinogen Dipstick 1.0 mg/dL (0.2 mg/dL) Urine Leukocyte Esterase Moderate (NEG) Urine RBC 0 /HPF (0-2) Urine WBC Tntc /HPF (0-4) Urine Squamous Epithelial Cells Many /LPF Urine Bacteria Many /HPF (0-FEW) Urine Mucus Marked /LPF POC Urine HCG, Qualitative Hcg negative (Negative) Influenza Type A Antigen Negative (NEGATIVE) Influenza Type B Antigen Negative (NEGATIVE) (JUAN ANTONIO LOMELI MD) EKG EKG [] (CLARITA IRVIN APRN) Radiology/Procedures Radiology/Procedures [] (CLARITA IRVIN APRN) Course & Med Decision Making Course & Med Decision Making Pertinent Labs and Imaging studies reviewed. (See chart for details) This is a 54-year-old female patient well known to this ED presenting today complaining of generalized body aches, nausea vomiting, flank pain, symptoms for 2 days. Negative influenza A or B. Positive UTI. Discharge on Cipro, diclofenac and cyclobenzaprine for pain. Zofran for nausea vomiting, follow-up with primary care doctor in 1-2 weeks. (CLARITA IRVIN APRN) Dragon Disclaimer Dragon Disclaimer This electronic medical record was generated, in whole or in part, using a voice recognition dictation system. (CLARITA IRVIN APRN) Departure Departure Impression: Primary Impression: UTI (urinary tract infection) Additional Impression: Nausea and vomiting Disposition: HOME, SELF-CARE Condition: STABLE Referrals: PUSHPA JOHNSON MD (PCP) follow up next week Patient Instructions: Nausea and Vomiting, [id number], Urinary Tract Infection Additional Instructions: You have urinary tract infection, we put you on antibiotics, we also gave you something for pain,nausea and vomiting. Follow-up with your doctor next week, push fluids. Scripts Cyclobenzaprine Hcl (CYCLOBENZAPRINE HCL) 10 Mg Tablet 1 TAB PO TID, #30 TAB Prov: MUTKIMMYACLARITA [employer]SPORTATION SUPERVISOR 2/7/20 Diclofenac Potassium (DICLOFENAC POTASSIUM) 50 Mg Tablet 1 TAB PO BID, #20 TAB 0 Refills Prov: CLARITA IRVIN TRANSPORTATION SUPERVISOR 2/7/20 Ondansetron (ONDANSETRON ODT) 4 Mg Tab.rapdis 1 TAB PO PRN Q6-8HRS, #16 TAB Prov: MUTKIMMYACLARITA TRANSPORTATION SUPERVISOR 2/7/20 Ciprofloxacin Hcl (CIPRO) 500 Mg Tablet 1 TAB PO BID for 7 Days, #14 TAB 0 Refills Prov: MUTUNGA,CLARITA [employer]SPORTATION SUPERVISOR 2/7/20 Cyclobenzaprine Hcl (CYCLOBENZAPRINE HCL) 10 Mg Tablet 1 TAB PO TID, #30 TAB Prov: MUTUNGA,CLARITA TRANSPORTATION SUPERVISOR 2/7/20 Diclofenac Potassium (DICLOFENAC POTASSIUM) 50 Mg Tablet 1 TAB PO BID, #20 TAB 0 Refills Prov: MUTUNGA,CLARITA TRANSPORTATION SUPERVISOR 2/7/20 Ondansetron (ONDANSETRON ODT) 4 Mg Tab.rapdis 1 TAB PO PRN Q6-8HRS, #16 TAB Prov: MUTUNGA,CLARITA TRANSPORTATION SUPERVISOR 2/7/20 Ciprofloxacin Hcl (CIPRO) 500 Mg Tablet 1 TAB PO BID for 7 Days, #14 TAB 0 Refills Prov: CLARITA IRVIN APRN 12/13/19 Problem Qualifiers Primary Impression: UTI (urinary tract infection) Urinary tract infection type: site unspecified Hematuria presence: without hematuria Qualified Codes: N39.0 - Urinary tract infection, site not specified Additional Impression: Nausea and vomiting Vomiting type: unspecified Vomiting Intractability: non-intractable Qualified Codes: R11.2 - Nausea with vomiting, unspecified CLARITA IRVIN APRN Dec 13, 2019 21:40 JUAN ANTONIO LOMELI MD Dec 13, 2019 22:29
== END 2019-12-13 22:02 | disposition home or self-care (01) ==
LOC: ER 18:38
DX: N39.0 Urinary tract infection, site not specified (principal); R11.2 Nausea with vomiting, unspecified; R10.9 Unspecified abdominal pain; M19.90 Unspecified osteoarthritis, unspecified site; E11.9 Type 2 diabetes mellitus without complications; F17.200 Nicotine dependence, unspecified, uncomplicated; Z98.890 Other specified postprocedural states; Z88.2 Allergy status to sulfonamides; Z88.1 Allergy status to other antibiotic agents
CPT/HCPCS: 81001; 81025; 87804; 99284

== ENCOUNTER 2020-06-05 21:15 | Emergency (ER) | payer OTHER ==
[~2020-06-05] VITALS: Ht 167.6 cm; Wt 127.0 kg
[~2020-06-05 21:15] MED LIST changes: +CIPR500T94 PO; +DICL50TA2 PO; +ONDA4TAB12 PO
--- NOTE | 2020-06-05 22:49 | PHYS DOC ---
Past Medical History Past Medical History: Arthritis, Diabetes-Type II Additional Past Medical Histor: "artery disease" Past Surgical History: , Other Additional Past Surgical Histo: jaw broke Smoking Status: Current Every Day Smoker Alcohol Use: Occasionally Drug Use: None General Adult EDM: Chief Complaint: SHOULDER INJURY HPI: HPI: 54-year-old female presents emergency department with complaints of left shoulder pain, she states she had pain, felt a pop after lifting a suitcase. She denies any chest pain, shortness of breath, nausea, vomiting. Patient complains of 10 out of 10 pain, she denies any numbness or tingling down her l eft arm. She has limited range of motion secondary to pain, no obvious deformity appreciated on examination. Movements make her pain worse, palpation makes her pain worse. Review of Systems: Review of Systems: Constitutional: Denies fever or chills. [] HENT: Denies nasal congestion or sore throat. [] Respiratory: Denies cough or shortness of breath. [] Cardiovascular: Denies chest pain or edema. [] GI: Denies abdominal pain, nausea, vomiting, bloody stools or diarrhea. [] Musculoskeletal: Denies back pain, ;left shoulder pain Neurologic: Denies headache, focal weakness or sensory changes. [] Heart Score: Risk Factors: Risk Factors: DM, Current or recent (<one month) smoker, HTN, HLP, family history of CAD, obesity. Risk Scores: Score 0 - 3: 2.5% MACE over next 6 weeks - Discharge Home Score 4 - 6: 20.3% MACE over next 6 weeks - Admit for Clinical Observation Score 7 - 10: 72.7% MACE over next 6 weeks - Early Invasive Strategies Allergies: Allergies: Allergies Coded Allergies Type Severity Reaction Last Updated Verified lisinopril Allergy Severe angioedema 03/23/17 Yes iodine Allergy Intermediate Rash 10/04/17 Yes Physical Exam: PE: Constitutional: Well developed, well nourished, no acute distress, non-toxic appearance. [] HENT: Normocephalic, atraumatic, bilateral external ears normal, oropharynx moist, no oral exudates, nose normal. [] Eyes: PERRLA, EOMI, conjunctiva normal, no discharge. [] Neck: Normal range of motion, no tenderness, supple, no stridor. [] Cardiovascular:Heart rate regular rhythm, no murmur [] Lungs & Thorax: Bilateral breath sounds clear to auscultation [] Abdomen: Bowel sounds normal, soft, no tenderness, no masses, no pulsatile masses. [] Skin: Warm, dry, no erythema, no rash. [] Back: No tenderness, no CVA tenderness. [] Extremities: TTP left shoulder, no obvious deformity appreciated, ROM limited 2/2 pain Neurologic: Alert and oriented X 3, no focal deficits noted. [] Psychologic: Affect normal, judgement normal, mood normal. [] EKG: EKG: [] Radiology/Procedures: Radiology/Procedures: [] Course & Med Decision Making: Course & Med Decision Making Pertinent Labs and Imaging studies reviewed. (See chart for details) []54-year-old female presents emergency department with complaints of left shoulder pain, she states she had pain, felt a pop after lifting a suitcase. She denies any chest pain, shortness of breath, nausea, vomiting. Patient complains of 10 out of 10 pain, she denies any numbness or tingling down her left arm. She has limited range of motion secondary to pain, no obvious deformity appreciated on examination. Movements make her pain worse, palpation makes her pain worse. Imaging reviewed with evidence of potential left distal acromion with lucency. Patient does have point tenderness around that area, will plan for sling and Ortho referral with pain medications as well as antispasmodic medications. Discussed discharge plan with patient, understanding of discharge plans, return precautions discussed and patient voiced understanding. Dragon Disclaimer: Raisa Disclaimer: This electronic medical record was generated, in whole or in part, using a voice recognition dictation system. Departure Departure Impression: Primary Impression: Left shoulder pain Qualified Codes: M25.512 - Pain in left shoulder Disposition: HOME, SELF-CARE Condition: STABLE Referrals: PUSHPA JOHNSON MD (PCP) CORIN NEUMANN II, MD Patient Instructions: Shoulder Pain Scripts Cyclobenzaprine Hcl (CYCLOBENZAPRINE HCL) 5 Mg Tablet 1 TAB PO TID PRN for MUSCLE SPASMS, #15 TAB Prov: JUAN ANTONIO LOMELI MD 06/05/20 Hydrocodone/Apap 5-325 (NORCO 5-325 TABLET) 1 Each Tablet 1 TAB PO PRN Q6HRS PRN for PAIN, #10 TAB 0 Refills Prov: JUAN ANTONIO LOMELI MD 06/05/20 Justicifation of Admission Dx: Justifications for Admission: Justification of Admission Dx: N/A JUAN ANTONIO LOMELI MD Jun 05, 2020 22:49
--- NOTE | 2020-06-05 23:29 | RAD ---
EXAM: 3 Views Left Shoulder DATE: 06/05/2020 10:46 PM INDICATION: Reason: pain after lifting / Spl. Instructions: / History: COMPARISON: No Prior FINDINGS: AC joint is congruent. Subtle lucency is seen through the distal acromion, likely summation artifact from enthesopathy or os acromiale however nondisplaced fracture is not excluded. Otherwise, there is no evidence for acute fracture or dislocation. Humeral head is not high riding. IMPRESSION: 1. Subtle lucency within the distal acromion is favored to represent artifact although fracture cannot be entirely excluded. Recommend correlation with patient's symptoms/point tenderness. 2. Otherwise, no acute fracture or dislocation. Electronically signed by: Christian Giraldo MD (06/05/2020 11:26 PM) RINA
[2020-06-05] MEDS ORDERED: predniSONE 20 MG TABLET PO ONE (23:30)
[2020-06-05] MEDS ORDERED: KETOROLAC 60 MG/2 ML VIAL. IM ONE (23:30)
[2020-06-05] MEDS ORDERED: HYDR-3164 PO (23:41)
[2020-06-05] MEDS ORDERED: CYCL5TAB PO (23:41)
[2020-06-05 23:56] VITALS: BP 136/72
== END 2020-06-06 00:01 | disposition home or self-care (01) ==
LOC: ER 21:15
DX: M25.512 Pain in left shoulder (principal); E11.9 Type 2 diabetes mellitus without complications; F17.200 Nicotine dependence, unspecified, uncomplicated; Z88.8 Allergy status to other drugs, medicaments and biological substances; X50.0XXA Overexertion from strenuous movement or load, initial encounter; Y93.89 Activity, other specified; Y92.89 Other specified places as the place of occurrence of the external cause; Y99.8 Other external cause status
CPT/HCPCS: 73030; 96372; 99283; J1885; J7512

== ENCOUNTER 2020-08-30 11:18 | Emergency (ER) | payer OTHER ==
[~2020-08-30] VITALS: Ht 170.2 cm; Wt 136.0 kg
[~2020-08-30 11:18] MED LIST changes: +CYCL5TAB PO; +HYDR-3164 PO
[2020-08-30] MEDS ORDERED: NAPROXEN 500 MG TABLET PO STA (11:44)
[2020-08-30] MEDS ORDERED: HYDROcodone/APAP 5/325MG 1 TAB TABLET PO ONE (11:45)
--- NOTE | 2020-08-30 11:52 | PHYS DOC ---
Past Medical History Past Medical History: Arthritis, Diabetes-Type II, UTI Additional Past Medical Histor: "artery disease" "HEART PROBLEMS" Past Surgical History: , Other Additional Past Surgical Histo: jaw broke, STENTS X3 Smoking Status: Current Every Day Smoker Alcohol Use: Occasionally Drug Use: None General Adult EDM: Chief Complaint: FLANK PAIN HPI: HPI: Patient is a 54 year old female who presents to the ED today complaining of mild right flank pain for 3 days. Patient denies any nausea, vomiting. Has history of UTI. Denies any history of kidney stones. Denies any hematuria. Review of Systems: Review of Systems: Constitutional: Denies fever or chills. [] Eyes: Denies change in visual acuity. [] HENT: Denies nasal congestion or sore throat. [] Respiratory: Denies cough or shortness of breath. [] Cardiovascular: Denies chest pain or edema. [] GI: Denies abdominal pain, nausea, vomiting, bloody stools or diarrhea. [] : Reports right flank pain. Denies dysuria. [] Musculoskeletal: Denies back pain or joint pain. [] Integument: Denies rash. [] Neurologic: Denies headache, focal weakness or sensory changes. [] Psychiatric: Denies depression or anxiety. [] Heart Score: Risk Factors: Risk Factors: DM, Current or recent (<one month) smoker, HTN, HLP, family history of CAD, obesity. Risk Scores: Score 0 - 3: 2.5% MACE over next 6 weeks - Discharge Home Score 4 - 6: 20.3% MACE over next 6 weeks - Admit for Clinical Observation Score 7 - 10: 72.7% MACE over next 6 weeks - Early Invasive Strategies Current Medications: Current Medications Medications (Trade) Dose Ordered Sig/Karina Start Time Stop Time Status Last Admin Dose Admin Acetaminophen/ Hydrocodone Bitart (Lortab 5/325) 1 tab 1X ONCE 08/30/20 11:45 08/30/20 11:47 DC Naproxen (Naprosyn) 500 mg 1X STAT 08/30/20 11:44 08/30/20 11:47 DC Allergies: Allergies: Allergies Coded Allergies Type Severity Reaction Last Updated Verified lisinopril Allergy Severe angioedema 03/23/17 Yes iodine Allergy Intermediate Rash 10/04/17 Yes Physical Exam: PE: Constitutional: Well developed, well nourished, no acute distress, non-toxic appearance. [] HENT: Normocephalic, atraumatic, bilateral external ears normal, oropharynx moist, no oral exudates, nose normal. [] Eyes: PERRLA, EOMI, conjunctiva normal, no discharge. [] Neck: Normal range of motion, no tenderness, supple, no stridor. [] Cardiovascular:Heart rate regular rhythm, no murmur [] Lungs & Thorax: Bilateral breath sounds clear to auscultation [] Abdomen: Bowel sounds normal, soft, no tenderness, no masses, no pulsatile masses. [] Skin: Warm, dry, no erythema, no rash. [] Back: No tenderness, no CVA tenderness. [] Extremities: No tenderness, no cyanosis, no clubbing, ROM intact, no edema. [] Neurologic: Alert and oriented X 3, normal motor function, normal sensory function, no focal deficits noted. [] Psychologic: Affect normal, judgement normal, mood normal. [] Current Patient Data: Vital Signs: Vital Signs Date Time Temp Pulse Resp B/P (MAP) Pulse Ox O2 Delivery O2 Flow Rate FiO2 08/30/20 11:27 98.3 73 16 145/80 (101) 97 Room Air 98.3 EKG: EKG: [] Radiology/Procedures: Radiology/Procedures: [] Course & Med Decision Making: Course & Med Decision Making Pertinent Labs and Imaging studies reviewed. (See chart for details) This is a 54-year-old female patient presenting to the ED today with right flank pain for 3 days. Positive for UTI, discharged on cephalexin. Follow-up with PCP in 1 to 2 weeks instructed to push fluids. Dragon Disclaimer: Dragon Disclaimer: This electronic medical record was generated, in whole or in part, using a voice recognition dictation system. Departure Departure Impression: Primary Impression: UTI (urinary tract infection) Qualified Codes: N39.0 - Urinary tract infection, site not specified Disposition: 01 DC HOME SELF CARE/HOMELESS Condition: STABLE Referrals: PUSHPA JOHNSON MD (PCP) Follow-up in 1 to 2 weeks Patient Instructions: Urinary Tract Infection Additional Instructions: You have urinary tract infection. Take the prescribed antibiotics until completed. Push fluids. Follow-up with your doctor in 1 to 2 weeks Scripts Tramadol Hcl (TRAMADOL HCL) 50 Mg Tablet 50 MG PO Q6HRS PRN for PAIN, #21 TAB Prov: CLARITA IRVIN APRN 08/30/20 Cephalexin (CEPHALEXIN) 500 Mg Tablet 1 TAB PO BID, #14 TAB Prov: CLARITA IRVIN APRN 08/30/20 CLARITA IRVIN APRN Aug 30, 2020 11:52
[2020-08-30 12:19] LABS: BILIRUBIN,URINE NEGATIVE (NEG); CLARITY,URINE CLEAR; COLOR,URINE YELLOW; NITRITE,URINE NEGATIVE (NEG); PROTEIN,URINE NEGATIVE (NEG-TRACE)
[2020-08-30 12:33] LABS: BACTERIA,URINE MANY /HPF (0-FEW); WBC,URINE 20-40 /HPF (0-4)
[2020-08-30] MEDS ORDERED: CEPH500T PO (12:59)
[2020-08-30 13:00] VITALS: BP 148/70
[2020-08-30] MEDS ORDERED: TRAM50TA PO (13:05)
== END 2020-08-30 13:09 | disposition home or self-care (01) ==
LOC: ER 11:18
DX: N39.0 Urinary tract infection, site not specified (principal); E11.9 Type 2 diabetes mellitus without complications; F17.200 Nicotine dependence, unspecified, uncomplicated; Z88.8 Allergy status to other drugs, medicaments and biological substances
CPT/HCPCS: 81001; 87086; 99283

== ENCOUNTER → 2020-11-09 | Outpatient (CLI) | payer OTHER ==
[~2020-11-09] MED LIST changes: +CEPH500T PO; +TRAM50TA PO
--- NOTE | 2020-11-09 10:02 | RAD ---
EXAM: Bilateral digital screening mammogram with tomosynthesis. HISTORY: 55-year-old female presents for screening mammography. TECHNIQUE: Full-field digital craniocaudal and mediolateral oblique 2D and 3D tomosynthesis images of both breasts are obtained for evaluation. Computer aided detection was applied. COMPARISON: 06/06/2019 BREAST PARENCHYMAL DENSITY: Level B - Scattered fibroglandular densities. FINDINGS: There is no new suspicious mass, microcalcification or region of architectural distortion. There is stable circumscribed nodular densities within both breasts. There are few benign calcificati ons. There are stable areas of asymmetry. IMPRESSION: BI-RADS Category 2: Benign finding(s). RECOMMENDATION: Annual mammography is recommended. If your mammogram demonstrates that you have dense breast tissue, which could hide abnormalities, and if you have other risk factors for breast cancer that have been identified, you might benefit from s upplemental screening tests that may be suggested by your ordering physician. Dense breast tissue, i n and of itself, is a relatively common condition. This information is not provided to cause undue c oncern, but rather to raise your awareness and to promote discussion with your physician regarding th e presence of other risk factors, in addition to dense breast tissue. A report of your mammography re sults will be sent to you and your physician. You should contact your physician if you have any ques tions or concerns regarding this report. Mammography is a sensitive method for finding small breast cancers, but it does not detect them all a nd is not a substitute for careful clinical examination. A negative mammogram does not negate a clin ically suspicious finding and should not result in delay in biopsying a clinically suspicious abnorma lity. PQRS compliance statement - Patient information was entered into a reminder system with a target due date for the next mammogram. "Our facility is accredited by the [employer] Mammography Program." Electronically signed by: Antonia Mosquera MD (11/09/2020 9:59 AM) [id number]
== END ==
LOC: MAMMO 08:31
PROVIDERS: ATTEND Internal Medicine
DX: Z12.31 Encounter for screening mammogram for malignant neoplasm of breast (principal)
CPT/HCPCS: 77063; 77067

== ENCOUNTER 2021-09-10 13:37 | Emergency (ER) | payer OTHER ==
[~2021-09-10] VITALS: Ht 167.6 cm; Wt 115.0 kg
[~2021-09-10 13:37] MED LIST changes: +CYCL10TA19 PO; -CYCL10TA2 PO; -FLUT100D IH; +FLUT100D2 IH; -ISOS30TA4 PO; +ISOS30TA68 PO; -LISI-334; +LISI20TA18; -OMEP40CA45; +OMEP40CA7; +POTA-121 PO; -POTA20TA4 PO
[2021-09-10 15:28] VITALS: BP 182/76
--- NOTE | 2021-09-10 15:55 | PHYS DOC ---
Past Medical History Past Medical History: Arthritis, Diabetes-Type II, UTI Additional Past Medical Histor: lymphoma (RUBINA RIOS APRN) Past Surgical History: Angioplasty, Additional Past Surgical Histo: Jaw (RUBINA RIOS APRN) Smoking Status: Current Every Day Smoker Alcohol Use: Occasionally Drug Use: None (RUBINA RIOS APRN) General Adult EDM: Chief Complaint: WRIST PAIN HPI: HPI: Patient is a 55-year-old female that presents today with nontraumatic right wrist pain. Patient states she has had the pain for months and she came by the emergency department today to have it checked out. 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 She denies trauma she denies numbness or tingling in her fingers and neck pain. Patient states she sees Dr. Johnson on a regular basis (RUBINA RIOS APRN) Review of Systems: Review of Systems: Constitutional: Denies fever or chills. [] Eyes: Denies change in visual acuity. [] HENT: Denies nasal congestion or sore throat. [] Respiratory: Denies cough or shortness of breath. [] Cardiovascular: Denies chest pain or edema. [] GI: Denies abdominal pain, nausea, vomiting, bloody stools or diarrhea. [] : Denies dysuria. [] Musculoskeletal: Denies back pain or joint pain. [] Integument: Denies rash. [] Neurologic: Denies headache, focal weakness or sensory changes. [] Endocrine: Denies polyuria or polydipsia. [] Lymphatic: Denies swollen glands. [] Psychiatric: Denies depression or anxiety. [] (RUBINA RIOS APRN) Heart Score: C/O Chest Pain: N/A Risk Factors: Risk Factors: DM, Current or recent (<one month) smoker, HTN, HLP, family history of CAD, obesity. Risk Scores: Score 0 - 3: 2.5% MACE over next 6 weeks - Discharge Home Score 4 - 6: 20.3% MACE over next 6 weeks - Admit for Clinical Observation Score 7 - 10: 72.7% MACE over next 6 weeks - Early Invasive Strategies (RUBINA RIOS APRN) Allergies: Allergies: Allergies Coded Allergies Type Severity Reaction Last Updated Verified lisinopril Allergy Severe angioedema 03/23/17 Yes iodine Allergy Intermediate Rash 10/04/17 Yes (RUBINA RIOS APRN) Physical Exam: PE: Constitutional: Well developed, well nourished, no acute distress, non-toxic appearance. [] HENT: Normocephalic, atraumatic, bilateral external ears normal, oropharynx moist, no oral exudates, nose normal. [] Eyes: PERRLA, EOMI, conjunctiva normal, no discharge. [] Neck: Normal range of motion, no tenderness, supple, no stridor. [] Cardiovascular:Heart rate regular rhythm, no murmur [] Lungs & Thorax: Bilateral breath sounds clear to auscultation [] Abdomen: Bowel sounds normal, soft, no tenderness, no masses, no pulsatile ma sses. [] Skin: Warm, dry, no erythema, no rash. [] Back: No tenderness, no CVA tenderness. [] Extremities: Right wrist without swelling or ecchymosis, 2+ radial pulse, cap refill less than 2 seconds, neurovascular intact distal to wrist, range of motion normal, no swelling noted Neurologic: Alert and oriented X 3, normal motor function, normal sensory function, no focal deficits noted. [] Psychologic: Affect normal, judgement normal, mood normal. [] (RUBINA RIOS APRN) Current Patient Data: Vital Signs: Vital Signs Date Time Temp Pulse Resp B/P (MAP) Pulse Ox O2 Delivery O2 Flow Rate FiO2 09/10/21 15:28 98.1 66 20 182/76 (111) 99 98.1 (RUBINA RIOS APRN) EKG: EKG: [] (RUBINA RIOS APRN) Radiology/Procedures: Radiology/Procedures: [PROCEDURE: WRIST 3V RIGHT EXAM: 3 views of the right wrist DATE: 09/10/2021 3:37 PM INDICATION: Reason: pain / Spl. Instructions: / History: COMPARISON: No Prior FINDINGS: No acute fracture or dislocation. Cystic change within the ulnar styloid and proximal phalanx first metacarpal. No significant soft tissue swelling. IMPRESSION: No acute fracture or dislocation. Multifocal degenerative changes Electronically signed by: Christian Giraldo MD (09/10/2021 3:55 PM) [facility] ] (RUBINA RIOS APRN) Course & Med Decision Making: Course & Med Decision Making Pertinent Labs and Imaging studies reviewed. (See chart for details) Reviewed x-rays no acute trauma noted degenerative changes noted, will place patient in a cock-up splint, encouraged her to wear that as much as possible, up with primary care physician for further testing for things such as carpal tunnel, may need a referral to orthopedic doctor. Take [id number] ibuprofen as needed for pain. [] (RUBINA RIOS APRN) Course & Med Decision Making I have participated in the care of this patient and I have reviewed and agree with all pertinent clinical information above including history, exam, and recommendations. Wanda Hou DO (WANDA HOU DO) Raisa Disclaimer: Raisa Disclaimer: This electronic medical record was generated, in whole or in part, using a voice recognition dictation system. (RUBINA RIOS APRN) Departure Departure Impression: Primary Impression: Wrist arthritis Disposition: HOME / SELF CARE / HOMELESS Condition: STABLE Referrals: PUSHPA JOHNSON MD (PCP) Patient Instructions: Wrist Pain Additional Instructions: Wear the cock-up splint she were given today as needed for pain Also take [id number] ibuprofen as labeled directed for pain as well Follow-up with primary care physician for further testing and further radiological exams of this pain. RUBINA RIOS APRN Sep 10, 2021 15:55 WANDA HOU DO Sep 11, 2021 06:12
== END 2021-09-10 16:57 | disposition home or self-care (01) ==
LOC: ER 13:37
DX: M19.031 Primary osteoarthritis, right wrist (principal); E11.9 Type 2 diabetes mellitus without complications; F17.200 Nicotine dependence, unspecified, uncomplicated; Z95.5 Presence of coronary angioplasty implant and graft; Z88.6 Allergy status to analgesic agent; Z88.8 Allergy status to other drugs, medicaments and biological substances
CPT/HCPCS: 29125; 73110; 99283

== ENCOUNTER → 2021-12-20 | Outpatient (CLI) | payer OTHER ==
--- NOTE | 2021-12-20 17:11 | RAD ---
Bilateral digital screening 2-D and 3-D (digital breast tomosynthesis) mammogram: Reason for examination: Routine screening. Comparison: Mammograms from 11/09/2020, 06/06/2019. Interpretation was made with the benefit of CAD. FINDINGS: Breast density: Category B. There are scattered areas of fibroglandular density. No suspicious breast mass, malignant appearing calcifications, or architectural distortion is seen. IMPRESSION: No evidence of malignancy. Assessment: BI-RADS 1. Negative. Recommendation: Routine screening mammograms. The patient will receive a letter with the results in the mail. Patient information will be entered i nto the mammography reminder system with a target recall date for the next mammogram. A reminder melony er will be generated. Electronically signed by: Bella Gray MD (12/20/2021 5:09 PM) [id number]
== END ==
LOC: MAMMO 12:21
PROVIDERS: ATTEND Internal Medicine
DX: Z12.31 Encounter for screening mammogram for malignant neoplasm of breast (principal)
CPT/HCPCS: 77063; 77067